=== PATIENT | female | born 1965 | race Caucasian/White ===

== ENCOUNTER 2018-08-14 22:24 | Inpatient (IN) | payer MEDICAID ==
[~2018-08-14] VITALS: Ht 165.1 cm; Wt 75.9 kg
[2018-08-14 22:29] VITALS: Ht 165.1 cm; Wt 75.9 kg
[2018-08-14 23:17] LABS: BASOPHIL % 0.8 % (0-2); PLATELET COUNT 218 x10^3mcL (130-400)
[2018-08-14 23:39] LABS: RED CELL DISTRIBUTION WIDTH 15.9 % (11.5-14.5)
[2018-08-14 23:50] LABS: BILIRUBIN TOTAL 0.2 mg/dL (0.20-1.00); CARBON DIOXIDE 21.6 mmol/L (21-32); POTASSIUM SERUM 4.6 mmol/L (3.5-5.1); TOTAL PROTEIN, SERUM 6.3 g/dL (6.4-8.2)
[2018-08-14 23:51] LABS: ALBUMIN 2.2 g/dL (3.4-5.0)
[2018-08-14 23:54] LABS: CALCIUM 5.8 mg/dL (8.5-10.1); CREATININE SERUM 6.8 mg/dL (0.6-1.0)
[2018-08-14 23:58] LABS: microscopic required? YES; urine erythrocyte 2+ (NEGATIVE)
[2018-08-15] VITALS (7 sets, daily range): BP systolic 158–198; BP diastolic 76–98
[2018-08-15 01:41] LABS: MAGNESIUM 2.2 mg/dL (1.8-2.4); PHOSPHOROUS 7.9 mg/dL (2.5-4.9)
[2018-08-15 01:54] LABS: CHOLESTEROL/HDL RATIO 3.6
[2018-08-15 07:19] LABS: CARBON DIOXIDE 19.5 mmol/L (21-32); MAGNESIUM 2.3 mg/dL (1.8-2.4); PHOSPHOROUS 7.9 mg/dL (2.5-4.9); POTASSIUM SERUM 4.5 mmol/L (3.5-5.1)
[2018-08-15 07:36] LABS: CALCIUM 5.4 mg/dL (8.5-10.1)
[2018-08-15 07:55] LABS: BASOPHIL % 0.7 % (0-2); PLATELET COUNT 181 x10^3mcL (130-400)
[2018-08-16] VITALS (7 sets, daily range): BP systolic 150–197; BP diastolic 65–94
[2018-08-16 06:31] LABS: BASOPHIL % 0.6 % (0-2); PLATELET COUNT 197 x10^3mcL (130-400)
[2018-08-16 06:54] LABS: RED CELL DISTRIBUTION WIDTH 16.2 % (11.5-14.5)
[2018-08-16 06:58] LABS: CALCIUM 6.2 mg/dL (8.5-10.1); CARBON DIOXIDE 17.1 mmol/L (21-32); MAGNESIUM 2.4 mg/dL (1.8-2.4); PHOSPHOROUS 8.7 mg/dL (2.5-4.9); POTASSIUM SERUM 4.2 mmol/L (3.5-5.1)
[2018-08-16 06:59] LABS: CREATININE SERUM 7.1 mg/dL (0.6-1.0)
[2018-08-17 05:32] VITALS: BP 165/76
[2018-08-17 06:27] VITALS: BP 131/49
[2018-08-17 06:36] LABS: BASOPHIL % 0.7 % (0-2); PLATELET COUNT 209 x10^3mcL (130-400)
[2018-08-17 06:43] LABS: RED CELL DISTRIBUTION WIDTH 16.3 % (11.5-14.5)
[2018-08-17 07:04] LABS: CALCIUM 6.8 mg/dL (8.5-10.1); CARBON DIOXIDE 18.5 mmol/L (21-32); MAGNESIUM 2.2 mg/dL (1.8-2.4); PHOSPHOROUS 8.2 mg/dL (2.5-4.9); POTASSIUM SERUM 4.3 mmol/L (3.5-5.1)
[2018-08-17 07:21] LABS: CREATININE SERUM 7.6 mg/dL (0.6-1.0)
[2018-08-17 10:07] VITALS: BP 134/56
[2018-08-17 13:00] VITALS: BP 142/63
[2018-08-17 17:08] VITALS: BP 154/65
[2018-08-17 19:56] VITALS: BP 164/68
[2018-08-18 04:39] VITALS: BP 139/65
[2018-08-18 06:44] LABS: CALCIUM 7.2 mg/dL (8.5-10.1); CARBON DIOXIDE 19.8 mmol/L (21-32); POTASSIUM SERUM 4.2 mmol/L (3.5-5.1)
[2018-08-18 06:47] LABS: CREATININE SERUM 8.1 mg/dL (0.6-1.0)
[2018-08-18 06:54] LABS: BASOPHIL % 0.8 % (0-2); PLATELET COUNT 218 x10^3mcL (130-400)
[2018-08-18 07:01] LABS: RED CELL DISTRIBUTION WIDTH 15.9 % (11.5-14.5)
[2018-08-18 09:32] VITALS: BP 155/69
[2018-08-18 16:45] VITALS: BP 135/60
[2018-08-18 17:28] VITALS: BP 113/60
[2018-08-18 21:12] VITALS: BP 108/52
[2018-08-19 05:16] VITALS: BP 137/57
[2018-08-19 06:33] LABS: BASOPHIL % 0.7 % (0-2); PLATELET COUNT 217 x10^3mcL (130-400); RED CELL DISTRIBUTION WIDTH 15.8 % (11.5-14.5)
[2018-08-19 06:42] LABS: CALCIUM 6.9 mg/dL (8.5-10.1); CARBON DIOXIDE 25.8 mmol/L (21-32); PHOSPHOROUS 5.7 mg/dL (2.5-4.9); POTASSIUM SERUM 3.8 mmol/L (3.5-5.1)
[2018-08-19 06:43] LABS: CREATININE SERUM 6.3 mg/dL (0.6-1.0)
[2018-08-19 08:45] VITALS: BP 102/52
[2018-08-19 12:41] VITALS: BP 196/90
[2018-08-19 13:15] VITALS: BP 136/62
[2018-08-19 16:43] VITALS: BP 166/71
[2018-08-19 21:26] VITALS: BP 179/78
[2018-08-20 05:20] VITALS: BP 142/70
[2018-08-20] MEDS ORDERED: LIPI10 PO (11:08)
[2018-08-20] MEDS ORDERED: METOPROLOL TART25 M1 PO (11:09)
[2018-08-20] MEDS ORDERED: CLEOCIN HCL300 MG PO (11:09)
[2018-08-20] MEDS ORDERED: LASIX40 MG PO (11:09)
[2018-08-20 12:42] VITALS: BP 136/73
[2018-08-20 13:43] VITALS: BP 132/46
== END 2018-08-20 15:29 | disposition home or self-care (01) | DRG 469 ==
LOC: ED 22:24 → DU 08-15 00:48
PROVIDERS: Emergency Medicine; Surgery; ADMIT Internal Medicine
PROC: B543ZZA Ultrasonography of Right Jugular Veins, Guidance (ICD-10-PCS; 2018-08-18)
PROC: 05HM33Z Insertion of Infusion Device into Right Internal Jugular Vein, Percutaneous Approach (ICD-10-PCS; principal; 2018-08-18 11:00)
DX: N17.0 Acute kidney failure with tubular necrosis (principal); I21.A1 Myocardial infarction type 2; E43 Unspecified severe protein-calorie malnutrition; I50.43 Acute on chronic combined systolic (congestive) and diastolic (congestive) heart failure; I13.2 Hypertensive heart and chronic kidney disease with heart failure and with stage 5 chronic kidney disease, or end stage renal disease; E11.65 Type 2 diabetes mellitus with hyperglycemia; N18.6 End stage renal disease; L03.311 Cellulitis of abdominal wall; E83.51 Hypocalcemia; E78.5 Hyperlipidemia, unspecified; R80.9 Proteinuria, unspecified; R74.0 Nonspecific elevation of levels of transaminase and lactic acid dehydrogenase [LDH]; E83.39 Other disorders of phosphorus metabolism; Z68.33 Body mass index [BMI] 33.0-33.9, adult; Z79.84 Long term (current) use of oral hypoglycemic drugs; Z91.19 Patient's noncompliance with other medical treatment and regimen; T39.315A Adverse effect of propionic acid derivatives, initial encounter; Y92.018 Other place in single-family (private) house as the place of occurrence of the external cause
CPT/HCPCS: 82962; 83880; 86580; A4301; C9113; J0133; J0690; J0885-EC; J1200; J1644; J1815; J1940; J2001; J2250; J2310; J2405; J3010; J3370; J3490; J7030; J7060; Q0092

== ENCOUNTER 2020-08-15 05:47 | Emergency (ER) | payer MEDICAID ==
[~2020-08-15] VITALS: Ht 162.6 cm; Wt 74.8 kg
[~2020-08-15 05:47] MED LIST: CLEOCIN HCL300 MG PO; LASIX40 MG PO; LIPI10 PO; METOPROLOL TART25 M1 PO
[2020-08-15 05:57] VITALS: Ht 162.6 cm; Wt 74.8 kg
[2020-08-15 06:52] LABS: BILIRUBIN TOTAL 0.3 mg/dL (0.20-1.00); CALCIUM 8.3 mg/dL (8.5-10.1); CARBON DIOXIDE 25.1 mmol/L (21-32); POTASSIUM SERUM 4.3 mmol/L (3.5-5.1); TOTAL PROTEIN, SERUM 6.7 g/dL (6.4-8.2)
[2020-08-15 06:59] LABS: BASOPHIL % 0.8 % (0.2-1.3); PLATELET COUNT 156 x10^3mcL (179-408); RED CELL DISTRIBUTION WIDTH 14.1 % (12.3-17.7)
[2020-08-15 07:02] LABS: ALBUMIN 2.7 g/dL (3.4-5.0); CREATININE SERUM 8.2 mg/dL (0.6-1.0)
[2020-08-15 09:21] VITALS: BP 193/81
== END 2020-08-15 09:21 | disposition short-term general hospital (02) ==
LOC: ED 05:47
PROVIDERS: Emergency Medicine
DX: I16.0 Hypertensive urgency (principal); E11.65 Type 2 diabetes mellitus with hyperglycemia; R56.9 Unspecified convulsions; Z99.2 Dependence on renal dialysis; Z20.822 Contact with and (suspected) exposure to COVID-19
CPT/HCPCS: 82962; J2060; J3490